=== PATIENT | female | born 1970 | race Caucasian/White ===

== ENCOUNTER → 2016-09-14 | Day surgery (SDC) | payer MEDICARE ==
[~2016-09-14] VITALS: Ht 170.2 cm; Wt 127.0 kg
[~2016-09-14] MED LIST: FERROUS SULFAT325 M2 PO; IBUPROFEN800 MG PO; LASIX40 MG PO; NAPROXEN250 MG PO; NORCO 5-325 TA1 EACH PO; OMEPRAZOLE40 MG PO; POTASSIUM CHLO20 ME1 PO; PROTONIX40 MG PO; SYNTHROID50 MCG PO
== END | disposition home or self-care (01) ==
LOC: OR 08:15
PROVIDERS: Orthopaedic Surgery
PROC: 0PSJ04Z Reposition Left Radius with Internal Fixation Device, Open Approach (ICD-10-PCS; principal; 2016-09-14 08:45)
DX: S52.122A Displaced fracture of head of left radius, initial encounter for closed fracture (principal); E07.9 Disorder of thyroid, unspecified; J44.9 Chronic obstructive pulmonary disease, unspecified; G43.909 Migraine, unspecified, not intractable, without status migrainosus; M54.9 Dorsalgia, unspecified; G89.29 Other chronic pain; Z98.51 Tubal ligation status; Z79.899 Other long term (current) drug therapy; Z83.3 Family history of diabetes mellitus
CPT/HCPCS: 73070; 76000; C1713; J0690; J2250; J2405; J3010; J7120